=== PATIENT | female | born 1945 | race American Indian/Alaskan Native ===

== ENCOUNTER 2016-10-03 09:35 | Outpatient (CLI) | payer MEDICARE ==
[2016-10-03] MEDS ORDERED: NACL ONE (11:21)
--- NOTE | 2016-10-04 08:57 | Mammography Report ---
BILATERAL MAMMOGRAM: FINDINGS: There are scattered fibroglandular densities (approximately 25%-50% glandular). No mass, distortion, suspicious calcification, or skin change is seen. There are no interval changes compared to her prior examination in 2015. CAD was utilized. IMPRESSION: Negative mammogram. There is no mammographic evidence of malignancy. RECOMMENDATION: Follow-up per ACS guidelines. BI-RADS CATEGORY: 1 = Negative ACR BI-RADS MAMMOGRAPHIC CODES: 0 = Needs additional imaging evaluation; 1 = Negative; 2 = Benign; 3 = Probably benign; 4 = Suspicious; 5 = Malignant; 6 = Known biopsy-proven malignancy COMMENT: 1. Dense breast tissue, i.e., adenosis, fibrocystic changes, etc., may obscure an underlying neoplasm. 2. Approximately 10% of cancers are not detected with mammography. 3. A negative mammography report should not delay biopsy if a clinically suspicious mass is present. COMMENT: Patient follow-up letters are generated in [employer].
--- NOTE | 2016-10-04 13:10 | Cat Scan Report ---
CT angiography of the head with 3-D reconstructed images and reformatted sagittal and coronal images. History: Known aneurysm of distal internal carotid artery. Comparison is made to previous studies performed on February 22, 2011 and April 27, 2014. Findings: The proximal right internal carotid artery is normal. At the site of the previously described aneurysm of the right internal carotid artery, cavernous segment, a vascular stent measuring 1.8 cm in length is present. There is no evidence of residual aneurysm, and the supraclinoid portion of the right internal carotid artery is patent. The right anterior and middle cerebral arteries appear normal. The left internal carotid artery, anterior and middle cerebral arteries are normal. The basilar artery and posterior cerebral arteries are normal. The right vertebral artery is dominant. Impression: An endovascular stent is seen in the cavernous segment of the right internal carotid artery with patency of the supraclinoid component as well as the anterior and middle cerebral arteries on the right. There is no evidence of residual aneurysm.
== END 2016-10-03 09:36 | disposition home or self-care (01) ==
LOC: CT 09:35
PROVIDERS: ATTEND Internal Medicine
DX: Z12.31 Encounter for screening mammogram for malignant neoplasm of breast (principal); I67.1 Cerebral aneurysm, nonruptured; Z95.828 Presence of other vascular implants and grafts
CPT/HCPCS: 36415; 70496; 82565; 84520; G0202; Q9967; 77067

== ENCOUNTER 2017-10-03 09:02 | Outpatient (CLI) | payer MEDICARE ==
--- NOTE | 2017-10-04 12:49 | Mammography Report ---
BILATERAL DIGITAL SCREENING MAMMOGRAM with CAD: 10/03/17 09:02:00 CLINICAL: Routine screening. COMPARISON:10/03/16 FINDINGS: The breasts are almost entirely fatty. No mass, architectural distortion or suspicious calcifications. IMPRESSION: No mammographic evidence of malignancy. BI-RADS CATEGORY: 1 - - Negative RECOMMENDATION: Routine mammographic screening in one year. COMMENT: Patient follow-up letters are generated by our [employer] application.
== END 2017-10-03 09:03 | disposition home or self-care (01) ==
LOC: MAMMO 09:02
PROVIDERS: ATTEND Internal Medicine
DX: Z12.31 Encounter for screening mammogram for malignant neoplasm of breast (principal)
CPT/HCPCS: 77067

== ENCOUNTER 2018-10-07 08:44 | Outpatient (CLI) | payer MEDICARE ==
--- NOTE | 2018-10-07 09:12 | Mammography Report ---
BILATERAL MAMMOGRAM: FINDINGS: There are scattered fibroglandular densities (approximately 25%-50% glandular). No mass, distortion, suspicious calcification, or skin change is seen. No significant change when compared to exams dating back to September 2016. CAD was utilized. IMPRESSION: Negative mammogram. There is no mammographic evidence of malignancy. RECOMMENDATION: Follow-up per ACS guidelines. BI-RADS CATEGORY: 1 = Negative ACR BI-RADS MAMMOGRAPHIC CODES: 0 = Needs additional imaging evaluation; 1 = Negative; 2 = Benign; 3 = Probably benign; 4 = Suspicious; 5 = Malignant; 6 = Known biopsy-proven malignancy COMMENT: 1. Dense breast tissue, i.e., adenosis, fibrocystic changes, etc., may obscure an underlying neoplasm. 2. Approximately 10% of cancers are not detected with mammography. 3. A negative mammography report should not delay biopsy if a clinically suspicious mass is present. COMMENT: Patient follow-up letters are generated in [employer].
== END 2018-10-07 08:45 | disposition home or self-care (01) ==
LOC: MAMMO 08:44
PROVIDERS: ATTEND Internal Medicine
DX: Z12.31 Encounter for screening mammogram for malignant neoplasm of breast (principal)
CPT/HCPCS: 77067

== ENCOUNTER 2020-10-11 08:40 | Outpatient (CLI) | payer MEDICARE ==
--- NOTE | 2020-10-11 09:46 | Mammography Report ---
DIGITAL SCREENING MAMMOGRAM WITH CAD, 10/11/2020 CLINICAL INFORMATION / INDICATION: Routine screening mammography. SCREENING MAMMOGRAM TECHNIQUE: Digital bilateral 2D mammography was obtained in the craniocaudal and mediolateral obliqu e projections. This examination was interpreted with the benefit of Computer-Aided Detection analysis . COMPARISON: 10/09/2019. FINDINGS: Breast Density: There are scattered areas of fibroglandular density. No dominant mass, suspicious calcifications, or architectural distortion in either breast. There are mild benign breast arterial calcifications bilaterally. IMPRESSION: No mammographic evidence of malignancy. Follow up recommendation: Routine yearly BI-RADS Category 2: Benign. A "normal" or negative report should not discourage follow up or biopsy of a clinically significant f inding. A written summary of these findings will be mailed to the patient. The patient will be entered into a mammography reporting system which will generate a reminder letter for the patient's next appointmen t at the appropriate interval. The [employer] recommends yearly mammograms starting at age 40 and continuing as l fátima as a woman is in good health. Breast MRI is recommended for women with an approximate 20-25% or greater lifetime risk of breast cancer, including women with a strong family history of breast or ova bridgette cancer or who have been treated for Hodgkin's disease. Signer Name: Sam Stevenson MD Signed: 10/11/2020 9:41 AM Workstation Name: [id number]
== END 2020-10-11 08:41 | disposition home or self-care (01) ==
LOC: MAMMO 08:40
PROVIDERS: ATTEND Internal Medicine
DX: Z12.31 Encounter for screening mammogram for malignant neoplasm of breast (principal); N64.89 Other specified disorders of breast
CPT/HCPCS: 77067

== ENCOUNTER 2021-10-13 09:55 | Outpatient (CLI) | payer MEDICARE ==
--- NOTE | 2021-10-13 12:23 | Mammography Report ---
DEXA BONE DENSITY SCAN INDICATION / CLINICAL INFORMATION: OSTEOPOROSIS. 75 years Female COMPARISON: None available. LUMBAR SPINE (L1-L4): - Bone mineral density (BMD) = 0.897 g/cm2. - T-score = -1.4 Change (%) since most recent prior (if available): None available. FEMORAL NECKS: - Left neck Bone mineral density (BMD) = 0.613 g/cm2. - T-score = -2.1 Change (%) since most recent prior (if available): None available. IMPRESSION: 1. WHO Classification: Osteopenia. Fracture Risk: Increased. 2. 10-Year Fracture Risk (FRAX) = Major Osteoporotic Not reported.% / Hip: Not reported.%. BMD Reporting Guidelines (ISCD, 2015) BMD Reporting in Postmenopausal Women and in Men Age 50 and Older * T-scores are preferred. * The WHO densitometric classification is applicable. BMD Reporting in Females Prior to Menopause and in Males Younger Than Age 50 * Z-scores, not T-scores, are preferred. This is particularly important in children. * A Z-score of -2.0 or lower is defined as below the expected range for age, and a Z-score above -2. 0 is within the expected range for age. * Osteoporosis cannot be diagnosed in men under age 50 on the basis of BMD alone. * The WHO diagnostic criteria may be applied to women in the menopausal transition. http://www.iscd.org/official-positions/4486-vnlm-rnyxvlzt-positions-adult/ Signer Name: Garcia Eller MD Signed: 10/13/2021 12:16 PM Workstation Name: [id number]
== END 2021-10-13 09:56 | disposition home or self-care (01) ==
LOC: MAMMO 09:55
PROVIDERS: ATTEND Internal Medicine
DX: Z12.31 Encounter for screening mammogram for malignant neoplasm of breast (principal); M81.8 Other osteoporosis without current pathological fracture; M85.88 Other specified disorders of bone density and structure, other site
CPT/HCPCS: 77067; 77080